=== PATIENT | male | born 1980 | race Two or more races ===

== ENCOUNTER 2017-08-08 12:30 | Emergency (ER) | payer OTHER ==
[~2017-08-08] VITALS: Ht 162.6 cm; Wt 70.3 kg
[~2017-08-08 12:30] MED LIST: IBUPROFEN600 MG PO; NKM
[2017-08-08 12:46] VITALS: BP 119/74
[2017-08-08] MEDS ORDERED: Tetanus/Diptheria/Pertussis Vaccine 0.5ml Syr IM ONE (13:00)
[2017-08-08] MEDS ORDERED: BACTRIM-DS1 EA ORAL (13:12)
[2017-08-08] MEDS ORDERED: CEPHALEXIN500 MG ORAL (13:12)
--- NOTE | 2017-08-08 13:12 | Emergency Room Report ---
History of Present Illness General Chief Complaint: Skin Rash/Abscess Source: Patient Present Illness HPI Patient is a 36-year-old male no significant past medical history who presents today with complaints of left great finger pain. Patient states he cut his left thumb 8 days ago and did not present to the ED at that time. It he is unsure of his last tetanus shot. He states the pain is currently 10 in severity , nonradiating. He denies any fever, chills or associated symptoms. Patient denies any tobacco, alcohol or drug use. Allergies: Coded Allergies: No Known Allergies (Unverified , 01/15/13) Patient History Reviewed Nursing Documentation: PMH: Agreed, PSxH: Agreed Nursing Documentation-PMH Past Medical History: No Stated History Review of Systems Musculoskeletal: Reports: other - left thumb pain All Other Systems: negative except mentioned in HPI Physical Exam Vital Signs Date Time Temp Pulse Resp B/P (MAP) Pulse Ox O2 Delivery O2 Flow Rate FiO2 08/08/17 12:46 98.2 82 18 119/74 98 Room Air Sp02 EP Interpretation: reviewed, normal General Appearance: no apparent distress, alert, GCS 15, non-toxic Head: normocephalic, atraumatic Eyes: bilateral eye normal inspection, bilateral eye PERRL ENT: hearing grossly normal, normal pharynx, no angioedema, normal voice Neck: full range of motion, supple/symm/no masses Respiratory: chest non-tender, lungs clear, normal breath sounds, speaking full sentences Cardiovascular #1: regular rate, rhythm, no edema Cardiovascular #2: 2+ carotid (R), 2+ carotid (L), 2+ radial (R), 2+ radial (L) , 2+ dorsalis pedis (R), 2+ dorsalis pedis (L) Gastrointestinal: normal bowel sounds, non tender, soft, non-distended, no guarding, no rebound Rectal: deferred Genitourinary: normal inspection, no CVA tenderness Musculoskeletal: back normal, gait/station normal, normal range of motion, non- tender, calf tenderness, other - FROM at all joints of hand Neurologic: alert, oriented x3, responsive, motor strength/tone normal, sensory intact, speech normal Psychiatric: judgement/insight normal, memory normal, mood/affect normal, no suicidal/homicidal ideation Reflexes: 3+ bicep (R), 3+ bicep (L), 3+ tricep (R), 3+ tricep (L), 3+ knee (R) , 3+ knee (L) Skin: normal color, no rash, warm/dry, well hydrated, other - .5cm well healing laceration at the proximal aspect of the dorsal left thumb with 1cm surroudning erythema. Mild TTP Lymphatic: no adenopathy Medical Decision Making PA Attestation supervising physician is Dr. Delgado Diagnostic Impression: Primary Impression: Laceration of finger of left hand Additional Impression: Infected wound ER Course Patient is found to have an infected wound in his left thumb. Tetanus is updated in the ED. Patient is discharged home with Bactrim Keflex and instructed to followup with PCP in 2 days for reevaluation. Resources are given for outpatient followup. Patient understands and is agreeable with plan. Please note this report is being documented using [employer] technology. This can lead to erroneous entry secondary to incorrect interpretation by the dictating instrument. Last Vital Signs Date Time Temp Pulse Resp B/P (MAP) Pulse Ox O2 Delivery O2 Flow Rate FiO2 08/08/17 12:46 98.2 82 18 119/74 98 Room Air Status: improved Disposition: HOME, SELF-CARE Condition: Stable Scripts Cephalexin* (KEFLEX*) 500 Mg Capsule 500 MG ORAL EVERY 12 HOURS for 10 Days, #40 CAP 0 Refills Prov: Kenzie Baca P.A. 08/08/17 Trimethoprim/Sulfamethoxazole (Bactrim Ds Tablet) 1 Each Tablet 1 TAB ORAL TWICE A DAY for 10 Days, #20 TAB Prov: Kenzie Baca P.ACasey 08/08/17 Kenzie Baca Aug 08, 2017 13:12
[2017-08-08 13:25] VITALS: BP 119/74
== END 2017-08-08 13:25 | disposition home or self-care (01) ==
LOC: EMR 13:00
DX: S61.012A Laceration without foreign body of left thumb without damage to nail, initial encounter (principal); W26.0XXA Contact with knife, initial encounter; Y92.511 Restaurant or cafe as the place of occurrence of the external cause; Z23 Encounter for immunization
CPT/HCPCS: 90471; 90715; 99283